=== PATIENT | female | born 1980 | race Caucasian/White ===

== ENCOUNTER → 2016-10-30 | Outpatient (CLI) | payer BC ==
[~2016-10-30] MED LIST: ALBUTEROL17 G1 IH; ALBUTEROL17 GM INH; PREDNISONE50 MG PO; SINGULAIR PO; ZYRTEC10 M2 PO
--- NOTE | ~2016-10-30 | MY6 ---
[facility] A Service of [facility] & [facility] RADIOLOGY TEXT RESULTS PATIENT: TOMAS KEE LOCATION: [facility] : [birth year] UNIT #: [id number] AGE: [address]: Andie Garcia APRN SEX: F ORDER DR: [id number] [facility]. [place], [place] [address] [id number] O MR#: [id number] Acc #: [id number] NAME: TOMAS KEE : 1980 SEX: F STUDY DATE/TIME: 10/30/2016 12:48 UNIT: [facility] ROOM: STUDY DESCRIPTION: MY Mammogram Dx Dig [place] Attending Physician: Andie Garcia A.P.R.N. Ordering Physician: Andie Garcia A.P.R.N. Primary Care Physician: Amanda Lomax M.D. MEDICAL IMAGING REPORT This report is preliminary unless electronic signature is present EXAM Right breast digital diagnostic mammogram and left breast digital screening mammogram with CAD, 10/30/2016. HISTORY Right lateral breast pain radiating toward the nipple for 2 weeks. Patient denies palpable complaint. COMPARISON None. The patient's previous screening mammogram from 2000 or 2001 has been destroyed. The current study serves as the patients new baseline exam. FINDINGS CC, MLO and true ML views were obtained of the right breast, and CC and MLO views were obtained of the left breast. The study was performed utilizing digital technique and reviewed with an FDA-approved CAD device. Heterogeneously dense fibroglandular tissue is present bilaterally. No focal suspicious nodule, architectural distortion or microcalcification is seen. No abnormal skin thickening or retraction. If the patient has no palpable complaint, no targeted abnormality on mammogram, diagnostic breast ultrasound was deemed to be of no additional benefit and was not performed. IMPRESSION 1. Negative diagnostic mammogram. No mammographic abnormalities to explain the patient's right breast pain. Any further management of the patient's right breast pain should be based upon clinical assessment. Patient is advised to return for routine annual screening mammograms cycle, to begin at the age of 40, or sooner if STS. [facility] A Service of [facility] & [facility] RADIOLOGY TEXT RESULTS PATIENT: TOMAS KEE LOCATION: [facility] : [birth year] UNIT #: [id number] AGE: [address]: Andie Garcia APRN SEX: F ORDER DR: the patient experiences any additional complaints. 2. Findings recommendations were discussed with the patient today in the Radiology Department. Patients over the age of 40 are entered into a reminder system with target due date for the next mammogram. A result letter will also be sent to the patient. BIRADS: 1 Negative Dictated by... Rowena Galeas M.D. THIS IS AN ELECTRONICALLY VERIFIED REPORT Rowena Galeas M.D. at 10/31/2016 7:11 AM [place] TD: 10/30/2016 14:35 JOB #: [id number] MEDICAL IMAGING REPORT Page 1 of 1 COPY
== END | disposition home or self-care (01) ==
LOC: CMAM 12:20
DX: N64.4 Mastodynia (principal)
CPT/HCPCS: G0204